=== PATIENT | male | born 1995 | race Two or more races ===

== ENCOUNTER 2021-01-14 20:18 | Emergency (ER) | payer SELFPAY ==
[~2021-01-14] VITALS: Ht 165.1 cm; Wt 70.0 kg
[2021-01-14 20:27] VITALS: BP 149/88
== END 2021-01-14 23:35 | disposition left against medical advice (07) ==
LOC: ER 20:18
DX: F10.129 Alcohol abuse with intoxication, unspecified (principal); Z53.21 Procedure and treatment not carried out due to patient leaving prior to being seen by health care provider